=== PATIENT | female | born 1995 | race African-American/Black ===

== ENCOUNTER 2017-03-29 22:32 | Emergency (ER) | payer MEDICAID ==
[2010-11-21 09:00] VITALS: BMI 23.7
[2017-03-29 23:25] LABS: BASOPHILS 0.3 % (0-2); HEMOGLOBIN 12.3 g/dL (12-16); IMMATURE GRANULOCYTES 0.2 % (0-5); LYMPHOCYTES 23.5 % (15-50); MCH 29.7 pg (26.0-34.0); MCHC 34.2 g/dL (31.0-37.0); MEAN PLATELET VOLUME 9.8 fL (7.4-10.4); MONOCYTES 7.9 % (2-11); NEUTROPHILS 66.1 % (40-80); PLATELET COUNT 353 10x3/uL (130-400); RBC 4.14 10x6/uL (4.00-5.40); WBC 10.8 10x3/uL (4.8-10.8)
[2017-03-29 23:34] LABS: HCG SERUM NEGATIVE (NEGATIVE)
[2017-03-29 23:37] LABS: APPEARANCE HAZY (CLEAR); BILIRUBIN NEGATIVE (NEGATIVE); COLOR ORANGE (YELLOW); GLUCOSE NEGATIVE (NEGATIVE); KETONE NEGATIVE (NEGATIVE); LEUKOCYTE ESTERASE 2+ (NEGATIVE); NITRITE NEGATIVE (NEGATIVE); PROTEIN 2+ mg/dL (NEGATIVE); SPECIFIC GRAVITY 1.015 (1.005-1.020); UROBILINOGEN NORMAL (NORMAL)
[2017-03-29 23:38] LABS: BACTERIA MANY /hpf (NONE SEEN); EPITHELIAL CELLS 0-5 /hpf (0-5); RED CELLS - URINE >50 /hpf (0-5); WHITE CELLS - URINE >50 /hpf (0-5)
== END 2017-03-30 01:12 | disposition home or self-care (01) ==
LOC: D.ER 22:32
PROVIDERS: Emergency Medicine
DX: N93.9 Abnormal uterine and vaginal bleeding, unspecified (principal); N39.0 Urinary tract infection, site not specified; F17.200 Nicotine dependence, unspecified, uncomplicated

== ENCOUNTER 2017-04-20 19:04 | Emergency (ER) | payer MEDICAID ==
[2010-11-21 09:00] VITALS: BMI 23.7
== END 2017-04-21 01:05 | disposition home or self-care (01) ==
LOC: D.ER 19:04
DX: K64.9 Unspecified hemorrhoids (principal)

== ENCOUNTER 2017-07-23 20:26 | Emergency (ER) | payer MEDICAID ==
[2010-11-21 09:00] VITALS: BMI 23.7
== END 2017-07-23 21:12 | disposition home or self-care (01) ==
LOC: D.ER 20:26
DX: J06.9 Acute upper respiratory infection, unspecified (principal); F17.200 Nicotine dependence, unspecified, uncomplicated

== ENCOUNTER 2019-10-15 20:16 | Emergency (ER) | payer OTHER ==
[~2019-10-15] VITALS: Ht 167.6 cm; Wt 104.1 kg
[2019-10-15 20:21] VITALS: BP 125/87; Ht 167.6 cm; Wt 104.1 kg
[2019-10-15 21:15] LABS: ANION GAP 12.9 mmol/L (8-16); CALCIUM 8.8 mg/dL (8.5-10.1); CARBON DIOXIDE 25.6 mmol/L (21.0-32.0); POTASSIUM - SERUM 3.5 mmol/L (3.5-5.1)
[2019-10-15 21:17] LABS: BASOPHILS 0.2 % (0-2); EOSINOPHILS 2.3 % (0-7); HEMATOCRIT 35.7 % (36.0-48.0); IMMATURE GRANULOCYTES 0.2 % (0-5); LYMPHOCYTES 33.6 % (15-50); MCH 29.3 pg (26.0-34.0); MCHC 33.6 g/dL (31.0-37.0); MCV 87.3 fL (80.0-100.0); MEAN PLATELET VOLUME 9.5 fL (7.4-10.4); MONOCYTES 6.7 % (2-11); PLATELET COUNT 386 10x3/uL (130-400); RBC 4.09 10x6/uL (4.00-5.40); RDW 13.1 % (11.5-14.5); WBC 8.6 10x3/uL (4.8-10.8)
[2019-10-15 21:29] LABS: ALBUMIN 3.4 g/dL (3.4-5.0); BILIRUBIN - TOTAL 0.24 mg/dL (0.2-1.3); MAGNESIUM - SERUM 1.6 mg/dL (1.8-2.4); PROTEIN - SERUM 7.8 g/dL (6.4-8.2); THYROID STIMULATING HORMONE 1.82 uIU/mL (0.36-3.74)
[2019-10-15 21:53] LABS: BILIRUBIN NEGATIVE (NEGATIVE); GLUCOSE NEGATIVE (NEGATIVE); HCG URINE NEGATIVE (NEGATIVE); KETONE NEGATIVE (NEGATIVE); NITRITE NEGATIVE (NEGATIVE); UROBILINOGEN NORMAL (NORMAL)
== END 2019-10-15 22:34 | disposition home or self-care (01) ==
LOC: D.ER 20:16
PROVIDERS: Family Medicine
DX: R42 Dizziness and giddiness (principal); R55 Syncope and collapse